=== PATIENT | male | born 1980 ===

== ENCOUNTER 2016-09-25 18:34 | Emergency (ER) | payer SELFPAY ==
[2016-09-25] MEDS ORDERED: Sodium Chloride 0.9% 1,000 ML IV STA (19:44)
[2016-09-25 20:16] LABS: BASO % 0.7 % (0.0-2.0); EOS # 0.2 K/uL (0.0-0.7); EOS % 4.4 % (0.0-4.0); HEMATOCRIT 41.4 % (35.0-51.0); LYMPH # 0.7 K/uL (1.0-4.3); LYMPH % 13.4 % (20.0-40.0); MEAN CELL VOLUME 87.7 fl (80.0-94.0); MEAN CORPUSCULAR HEMOGLOBIN 29.7 pg (27.0-31.0); MEAN CORPUSCULAR HGB CONC 33.8 g/dL (33.0-37.0); MEAN PLATELET VOLUME 9.4 fl (7.2-11.7); MONO # 0.4 K/uL (0.0-0.8); MONO % 7.9 % (0.0-10.0); NEUT # 4.1 K/uL (1.8-7.0); NEUT % 73.6 % (50.0-75.0); RED CELL DISTRIBUTION WIDTH 13.6 % (11.5-14.5); WHITE BLOOD COUNT 5.5 K/uL (4.8-10.8)
[2016-09-25 20:21] LABS: ALB/GLOB RATIO 1.3 (1.0-2.1); ALCOHOL SERUM < 10 mg/dl (0-10); ALKALINE PHOSPHATASE 73 U/L (38-126); ALT/SGPT 54 U/L (21-72); AST/SGOT 26 U/L (17-59); BILIRUBIN,TOTAL 0.3 mg/dl (0.2-1.3); BLOOD UREA NITROGEN 15 mg/dl (9-20); CALCIUM 9.3 mg/dL (8.4-10.2); CARBON DIOXIDE 22 mmol/L (22-30); CHLORIDE 108 mmol/L (98-107); GFR AFRICAN-AMERICAN > 60; GLUCOSE,RANDOM 106 mg/dL (75-110); POTASSIUM 3.9 MMOL/L (3.6-5.0); RBC URINE < 1 /hpf (0-3); SODIUM 146 mmol/l (132-148); TOTAL PROTEIN 7.4 G/DL (6.3-8.2); URINE BILIRUBIN NEGATIVE (NEGATIVE); URINE BLOOD NEGATIVE (NEGATIVE); URINE COLOR STRAW (YELLOW); URINE GLUCOSE (UA) NEG (Normal); URINE KETONE NEGATIVE (NEGATIVE); URINE LEUKOCYTE ESTERASE NEG Leu/uL (Negative); URINE PROTEIN NEGATIVE (NEGATIVE); URINE UROBILINOGEN 0.2-1.0 mg/dL (0.2-1.0)
[2016-09-25 20:31] LABS: PARTIAL THROMBOPLASTIN TIME 30.8 SECONDS (23.3-32.5)
--- NOTE | 2016-09-25 21:26 | ED PDOC ---
HPI: Neurologic - General Time Seen by Provider: 09/25/16 19:15 Chief Complaint (Nursing): Weakness/Neurological Deficit Chief Complaint (Provider): Weakness/neurological deficit Source: patient Exam Limitations: no limitations - History of Present Illness Timing/Duration: 1 hour Severity: moderate Associated Symptoms: weakness (in lower extremities). denies: nausea/vomiting Allergies/Adverse Reactions: Allergies No Known Allergies Allergy (Verified 09/25/16 18:51) Additional Complaint(s): 36 year old male presents to the ED with complaints of sudden onset weakness of his lower extremities that started 1x hour prior to arrival. He reports that last night he took a new medication prescribed to him by [facility] for the numbness his hands have when he first wakes up, and this morning he felt mild weakness but drove himself to the [employer] where he works and does strenuous lifting. He reports having associated symptoms of a headache and dizziness. He denies having chest pain, cough, nausea, vomiting, diarrhea, and a fever. PMD: Luz Richard MD Past Medical History Reviewed: Historical Data, Nursing Documentation, Vital Signs Vital Signs: Last Vital Signs Temp 98.1 F 09/25/16 18:51 Pulse 66 09/25/16 18:51 Resp 16 09/25/16 18:51 BP 139/90 09/25/16 18:51 Pulse Ox 99 09/25/16 18:51 - Medical History PMH: No Chronic Diseases Denies: Chronic Kidney Disease - Surgical History Surgical History: No Surg Hx - Family History Family History: States: Unknown Family Hx - Social History Drugs: Denies - Allergies Allergies/Adverse Reactions: Allergies Allergy/AdvReac Type Severity Reaction Status Date / Time No Known Allergies Allergy Verified 09/25/16 18:51 Review of Systems ROS Statement: Except As Marked, All Systems Reviewed And Found Negative Constitutional: Negative for: Fever Cardiovascular: Negative for: Chest Pain Respiratory: Negative for: Cough Gastrointestinal: Negative for: Nausea, Vomiting, Abdominal Pain, Diarrhea Neurological: Positive for: Weakness (in lower extremities), Headache, Dizziness Physical Exam - Reviewed Nursing Documentation Reviewed: Yes Vital Signs Reviewed: Yes - Physical Exam Appears: Positive for: Well, Non-toxic, No Acute Distress Head Exam: Positive for: ATRAUMATIC, NORMOCEPHALIC Skin: Positive for: Normal Color Eye Exam: Positive for: Normal appearance Neck: Positive for: Normal Cardiovascular/Chest: Positive for: Regular Rate, Rhythm Respiratory: Positive for: Normal Breath Sounds. Negative for: Respiratory Distress Extremity: Positive for: Normal ROM Neurologic/Psych: Positive for: Alert, Oriented (3x), Motor/Sensory Deficits ( patient expresses weakness when he walks) - Laboratory Results Result Diagrams: 09/25/16 20:05 09/25/16 20:05 - ECG O2 Sat by Pulse Oximetry: 99 (RA) Pulse Ox Interpretation: Normal - CT Scan/US CT head Other Rad Studies (CT/US): Read By Radiologist, Radiology Report Reviewed Medical Decision Making Medical Decision Makin:15 Initial impression: 36 year old male with weakness, dizziness, and a headache recent onset due to new medication usage and strenuous lifting. Initial plan: * CT head w/o contrast * EKG * alcohol serum * CMP * creatine phosphokinase * drug screen urinary * CBC * PTT * prothrombin time * IV NS 1,000ml IV: 1,000mls/hr * urinalysis * reevaluation 21:[address] read and reviewed by radiologist FINDINGS: Brain: Unremarkable. No hemorrhage. No significant white matter disease. No edema. Ventricles: Unremarkable. No ventriculomegaly. Bones/joints: Unremarkable. No acute fracture. Soft tissues: Unremarkable. Sinuses: Unremarkable as visualized. No acute sinusitis. Mastoid air cells: Unremarkable as visualized. No mastoid effusion. IMPRESSION: No evidence of acute intracranial pathology. Thank you for allowing us to participate in the care of your patient. Dictated and Authenticated by: Bernard Blood MD 09/25/2016 9:10 PM Eastern Time ([place] & [place]) 22:00 labs reviewed, show no acute abnormalities. CT scan reviewed, show no abnormalities. Patient is asymptomatic in ED. Patient recalls that the medication he as prescribed was Naprosyn. Patient is advised to stop taking Rx. Diagnosis of non specific weakness is discussed with patient. Patient will be discharged home with instructions to follow up with his PMD in [facility]. Scribe Attestation: Documented by Yenni Diaz, acting as a scribe for Masoud Cruz MD. Provider Scribe Attestation: All medical record entries made by the Scribe were at my direction and personally dictated by me. I have reviewed the chart and agree that the record accurately reflects my personal performance of the history, physical exam, medical decision making, and the department course for this patient. I have also personally directed, reviewed, and agree with the discharge instructions and disposition. Disposition - Clinical Impression Clinical Impression: Episode of generalized weakness, Adverse drug effect - Disposition Disposition Time: 22:00 Condition: STABLE Instructions: Weakness (ED)
[2016-09-25 22:19] VITALS: BP 129/67; PULSE 77; RESP 14; TEMP 98.2
[2016-09-26 04:53] VITALS: O2SAT 99
--- NOTE | 2016-09-26 09:14 | CT ---
PROCEDURE: CT HEAD WITHOUT CONTRAST. HISTORY: Weakness, dizziness. COMPARISON: None available. TECHNIQUE: Axial computed tomography images were obtained through the head/brain without intravenous contrast. Coronal and sagittal reconstructed images. Radiation dose: Total exam DLP = 868.81 mGy-cm. This CT exam was performed using one or more of the following dose reduction techniques: Automated exposure control, adjustment of the mA and/or kV according to patient size, and/or use of iterative reconstruction technique. FINDINGS: HEMORRHAGE: No intracranial hemorrhage. BRAIN: No mass effect or edema. No atrophy or chronic microvascular ischemic changes. VENTRICLES: Unremarkable. No hydrocephalus. CALVARIUM: Unremarkable. PARANASAL SINUSES: Unremarkable as visualized. No significant inflammatory changes. MASTOID AIR CELLS: Unremarkable as visualized. No inflammatory changes. OTHER FINDINGS: None. IMPRESSION: No acute intracranial abnormalities. No significant findings to account for the clinical presentation. Concordant results (preliminary interpretation) provided by Bureaux A Partager. Procedure Completed: 20:46. Preliminary ([facility]) Report: Dictated and Authenticated: 21:10. Final Interpretation: 09:12. September 26, 2016.
--- NOTE | 2016-09-26 20:55 | CARD ---
APPROVED REPORT EKG Measurement Heart [id number] <Conclusion> Normal sinus rhythm Nonspecific intraventricular block Abnormal ECG
== END 2016-09-25 22:19 | disposition home or self-care (01) ==
LOC: H.ER 18:34
DX: R53.1 Weakness (principal); R42 Dizziness and giddiness; R51 Headache; R20.2 Paresthesia of skin